=== PATIENT | male | born 1960 | race Caucasian/White ===

== ENCOUNTER → 2018-12-23 | Outpatient (CLI) | payer BC ==
--- NOTE | 2018-12-23 11:53 | RAD ---
SHOULDER 2+V LEFT 12/23/2018 12:00 AM INDICATION: Mass. Bump in the mid left clavicle. COMPARISON: None available. TECHNIQUE: 3 views of the left shoulder are provided. FINDINGS: There is no acute fracture or dislocation. Bone mineralization is within normal limits. Joint spaces are maintained. Regional soft tissues are within normal limits. There is no soft tissue gas or osseous erosion. Anterior cervical discectomy and fusion hardware is identified in the lower cervical spine. IMPRESSION: No acute fracture or dislocation. No significant soft tissue abnormality is visualized. If there is persistent clinical concern, further evaluation with targeted ultrasound may be of benefit. Electronically signed by: Nery Reynolds MD (12/23/2018 11:50 AM) [facility]
== END | disposition home or self-care (01) ==
LOC: RAD 11:13
PROVIDERS: ATTEND General Practice
DX: R22.32 Localized swelling, mass and lump, left upper limb (principal); Z98.1 Arthrodesis status
CPT/HCPCS: 73030

== ENCOUNTER 2019-08-19 09:44 | Emergency (ER) | payer BC ==
[~2019-08-19] VITALS: Ht 177.8 cm; Wt 87.1 kg
--- NOTE | 2019-08-19 10:08 | PHYS DOC ---
Past Medical History Past Surgical History: Other (Cervical Fusion) Smoking: Cigarettes Adult General Chief Complaint Chief Complaint: CHEST PAIN HPI HPI Patient is a 59 year old male with PMH of cervical vertebral fusion who presents with chest pain, left arm pain, and neck pain. He he states this pain has been going on since last Saturday and has become increasingly more severe until today. He reports sharp, left upper chest pain that radiates down his left arm and has caused his left hand to feel somewhat numb. He also has excruciating neck pain at this time in his left, paraspinal cervical area. He has taken ibuprofen and Tylenol for the pain which has not helped at this point. He admits to decreased strength and range of motion in his left upper extremity. He denies any shortness of breath, swelling in his legs, nausea, or vomiting. Review of Systems Review of Systems Constitutional: Denies fever or chills Eyes: Denies redness or eye pain HENT: Denies nasal congestion or sore throat Respiratory: Denies cough or shortness of breath Cardiovascular: Reports sharp, left-sided chest pain but no palpitations GI: Denies abdominal pain, nausea, or vomiting : Denies dysuria or hematuria Musculoskeletal: Reports left, upper extremity pain. Left sided neck pain. Integument: Mild swelling, erythema over left upper chest Neurologic: Denies headache, focal weakness or sensory changes Complete systems were reviewed and found to be within normal limits, except as documented in this note. Current Medications Current Medications Current Medications Medications (Trade) Dose Ordered Sig/Jesika Start Time Stop Time Status Last Admin Dose Admin Aspirin (Tre Aspirin) 325 mg 1X ONCE 08/19/19 10:15 08/19/19 10:16 DC 08/19/19 10:20 325 MG Dexamethasone (Decadron) 10 mg 1X ONCE 08/19/19 11:00 08/19/19 11:01 DC 08/19/19 11:06 10 MG Fentanyl Citrate (Fentanyl 2ml Vial) 50 mcg 1X ONCE 08/19/19 10:15 08/19/19 10:16 DC 08/19/19 10:21 50 MCG Hydromorphone HCl (Dilaudid) 0.5 mg 1X ONCE 08/19/19 11:30 08/19/19 11:31 DC 08/19/19 11:44 0.5 MG Info (CONTRAST GIVEN -- Rx MONITORING) 1 each PRN DAILY PRN 08/19/19 11:30 08/19/19 13:09 DC Iohexol (Omnipaque 300 Mg/ml) 75 ml 1X ONCE 08/19/19 11:30 08/19/19 11:31 DC 08/19/19 11:30 75 ML Ketorolac Tromethamine (Toradol 15mg Vial) 15 mg 1X ONCE 08/19/19 11:00 08/19/19 11:01 DC 08/19/19 11:06 15 MG Orphenadrine Citrate (Norflex) 60 mg 1X ONCE 08/19/19 10:15 08/19/19 10:16 DC 08/19/19 10:21 60 MG Oxycodone/ Acetaminophen (Percocet 5/325) 1 tab 1X ONCE 08/19/19 12:45 08/19/19 12:47 DC 08/19/19 12:59 1 TAB Sodium Chloride 1,000 ml @ 1,000 mls/hr 1X ONCE 08/19/19 10:15 08/19/19 11:14 DC 08/19/19 10:20 1,000 MLS/HR Allergies Allergies Allergies Coded Allergies Type Severity Reaction Last Updated Verified No Known Drug Allergies 08/19/19 No Physical Exam Physical Exam Constitutional: Well developed, well nourished, 59yo male in severe pain. HENT: Normocephalic, atraumatic, oropharynx moist Eyes: conjunctiva normal, no discharge Neck: Normal range of motion, TTP over left paraspinal muscles Cardiovascular: Heart rate normal, regular rhythm Lungs & Thorax: Bilateral breath sounds clear to auscultation, no wheezing Abdomen: Soft, no tenderness Skin: Mild localized swelling over left upper chest Extremities: TTP over entire left, upper extremity. Decreased ROM and strength. Sensation and pulses are normal. Neurologic: Alert and oriented X 3, normal motor function, normal sensory function, no focal deficits noted Psychologic: Affect normal, judgement normal, mood normal Current Patient Data Vital Signs Vital Signs Date Time Temp Pulse Resp B/P (MAP) Pulse Ox O2 Delivery O2 Flow Rate FiO2 08/19/19 12:59 16 99 Room Air 08/19/19 12:15 68 149/88 (108) 08/19/19 09:55 98.3 98.3 Lab Values Laboratory Tests Test 08/19/19 10:10 White Blood Count 5.8 x10^3/uL (4.0-11.0) Red Blood Count 4.94 x10^6/uL (4.30-5.70) Hemoglobin 15.8 g/dL (13.0-17.5) Hematocrit 46.1 % (39.0-53.0) Mean Corpuscular Volume 93 fL (79-100) Mean Corpuscular Hemoglobin 32 pg (25-35) Mean Corpuscular Hemoglobin Concent 34 g/dL (31-37) Red Cell Distribution Width 12.7 % (11.5-14.5) Platelet Count 160 x10^3/uL (140-400) Neutrophils (%) (Auto) 60 % (31-73) Lymphocytes (%) (Auto) 23 % (24-48) L Monocytes (%) (Auto) 11 % (0-9) H Eosinophils (%) (Auto) 5 % (0-3) H Basophils (%) (Auto) 1 % (0-3) Neutrophils # (Auto) 3.5 x10^3/uL (1.8-7.7) Lymphocytes # (Auto) 1.4 x10^3/uL (1.0-4.8) Monocytes # (Auto) 0.6 x10^3/uL (0.0-1.1) Eosinophils # (Auto) 0.3 x10^3/uL (0.0-0.7) Basophils # (Auto) 0.0 x10^3/uL (0.0-0.2) Prothrombin Time 12.9 SEC (11.7-14.0) Prothrombin Time INR 1.0 (0.8-1.1) Activated Partial Thromboplast Time 30 SEC (24-38) Sodium Level 138 mmol/L (136-145) Potassium Level 4.2 mmol/L (3.5-5.1) Chloride Level 101 mmol/L (98-107) Carbon Dioxide Level 28 mmol/L (21-32) Anion Gap 9 (6-14) Blood Urea Nitrogen 10 mg/dL (8-26) Creatinine 1.0 mg/dL (0.7-1.3) Estimated GFR (Cockcroft-Gault) 76.7 BUN/Creatinine Ratio 10 (6-20) Glucose Level 114 mg/dL (70-99) H Calcium Level 9.3 mg/dL (8.5-10.1) Magnesium Level 2.2 mg/dL (1.8-2.4) Total Bilirubin 0.3 mg/dL (0.2-1.0) Aspartate Amino Transferase (AST) 13 U/L (15-37) L Alanine Aminotransferase (ALT) 16 U/L (16-63) Alkaline Phosphatase 71 U/L (46-116) Creatine Kinase 102 U/L (39-308) Creatine Kinase MB (Mass) 2.8 ng/mL (0.0-3.6) Creatine Kinase MB Relative Index 2.7 % (0-4) Troponin I Quantitative < 0.017 ng/mL (0.000-0.055) Total Protein 7.8 g/dL (6.4-8.2) Albumin 4.0 g/dL (3.4-5.0) Albumin/Globulin Ratio 1.1 (1.0-1.7) Lipase 142 U/L (73-393) Laboratory Tests 08/19/19 10:10 Laboratory Tests 08/19/19 10:10 EKG EKG 08/19/2019 @11:25 shows NSR at 94bpm. No ST elevations. [] Radiology/Procedures Radiology/Procedures PROCEDURE: CT CHEST W/CONTRAST CT CHEST W/CONTRAST Indication: Left chest wall pain. Patient fell. Exposure: One or more of the following individualized dose reduction techniques were utilized for this examination: 1. Automated exposure control 2. Adjustment of the mA and/or kV according to patient size 3. Use of iterative reconstruction technique. Technique: Standard imaging obtained after intravenous contrast administration. Comparison: None FINDINGS: Ascending aorta measures 3.8 cm compatible with mild ectasia. Aorta mildly calcified. No evidence of aortic dissection or aneurysm. Main central pulmonary arteries are grossly patent. Coronary artery calcification. No pericardial or pleural effusion. Thyroid demonstrates no dominant mass. No evidence of pathologic lymph node enlargement. No significant esophageal distention. Lungs appear clear without dominant mass or infiltrate. No evidence of pneumothorax. Trachea and mainstem bronchi are patent. No evidence of acute fracture. Vertebral body height as is alignment. Degenerative spondylosis. Scans to the upper abdomen limited by technique but no obvious abnormality. IMPRESSION: No acute findings. Electronically signed by: George Nayak MD (08/19/2019 12:22 PROCEDURE: CT HEAD AND CERVICAL SPINE WO CT scan of the head without contrast 08/19/2019 Clinical History: Fall with head injury Technique: Unenhanced, contiguous, 5 mm axial sections were obtained through the head. One or more of the following individualized dose reduction techniques were utilized for this study: 1. Automated exposure control. 2. Adjustment of the mA and/or kV according to patient size. 3. Use of iterative reconstruction technique. Findings: The ventricles and sulci are within normal limits in size and configuration. No acute parenchymal abnormality is seen. No extra-axial fluid collection is noted. No skull fracture is seen. Mild to moderate mucosal thickening is involving left maxillary sinus and scattered throughout the ethmoid air cells bilaterally. Impression: No acute intracranial abnormality is seen. CT scan of the cervical spine without contrast 08/19/2019 Clinical history: Fall with neck injury. Technique: Unenhanced, contiguous, 0.625 mm axial sections were obtained through the cervical spine. Axial, coronal and sagittal reconstructed images were obtained. One or more of the following individualized dose reduction techniques were utilized for this study: 1. Automated exposure control. 2. Adjustment of the mA and/or kV according to patient size. 3. Use of iterative reconstruction technique. Findings: Sagittal and coronal reconstructed images demonstrate minimal lateral curvature of the cervical spine, convex to the left. There is straightening of the normal cervical lordosis. The patient is post anterior fusion using anterior plate, bone screws and bone graft material at C6-7. Atherosclerotic calcification of the carotid bifurcations is seen. No fracture or subluxation cervical vertebrae seen. Degenerative changes are seen involving the uncovertebral and facet joints throughout the cervical disc spaces. Impression: No fracture or subluxation of the cervical vertebra is identified. Electronically signed by: Reji Hallman MD (08/19/2019 12:13 PM) [facility] Course & Med Decision Making Course & Med Decision Making Patient is a 59-year-old male with past medical history of cervical vertebral fusion presents with left upper chest pain, left upper extremity pain, and neck pain. Reports this pain began last Saturday and has become increasingly severe. He also reports slipping and falling on his back 2 weeks ago. In the emergency department, EKG and chest x-ray were largely unremarkable. Labs were obtained and were likewise reassuring. CT of the head, neck, and chest with contrast was obtained and demonstrated no acute abnormalities. Patient was administered fentanyl and Norflex initially which only partially controlled his pain. Due to his severe discomfort, Dilaudid and Ketorolac were also administered. Patient sent home with pain medication and advised to follow up with pain management. Patient stable for discharge with outpatient follow-up with PCP. Discussed findings and plan with patient, who acknowledges understanding and agreement. Dragon Disclaimer Dragon Disclaimer This electronic medical record was generated, in whole or in part, using a voice recognition dictation system. Departure Departure Impression: Primary Impression: Cervical radicular pain Disposition: HOME, SELF-CARE Condition: IMPROVED Referrals: NIGEL LEYVA DO (PCP) VEGA TALBOT MD Patient Instructions: Cervical Radiculopathy, [place] Scripts Naproxen (NAPROXEN) 375 Mg Tablet 375 MG PO TID PRN for PAIN, #30 TAB Prov: GEORGE WHITE DO 08/19/19 Orphenadrine Citrate (ORPHENADRINE CITRATE) 100 Mg Tablet.er 100 MG PO BID PRN for MUSCLE PAIN, #14 Prov: GEORGE WHITE DO 08/19/19 Prednisone (PREDNISONE) 20 Mg Tablet 2 TAB PO DAILY, #8 TAB Take this prescription tomorrow, 08/20/19 Prov: GEORGE WHITE DO 08/19/19 Oxycodone/Apap 5-325 (PERCOCET 5-325 MG TABLET ) 1 Each Tablet 0.5-1 TAB PO PRN Q6HRS PRN for PAIN, #14 TAB 0 Refills Prov: GEORGE WHITE DO 08/19/19 The HEART Score for CP Pts Risk Factors: Risk Factors: DM, Current or recent (<one month) smoker, HTN, HLP, family history of CAD, obesity. Risk Scores: Score 0 - 3: 2.5% MACE over next 6 weeks - Discharge Home Score 4 - 6: 20.3% MACE over next 6 weeks - Admit for Clinical Observation Score 7 - 10: 72.7% MACE over next 6 weeks - Early Invasive Strategies GEORGE WHITE DO Aug 19, 2019 10:08
[2019-08-19] MEDS ORDERED: ORPHENADRINE CITRATE 60 MG/2 ML VIAL. IV ONE (10:15)
[2019-08-19] MEDS ORDERED: ASPIRIN 325 MG TABLET PO ONE (10:15)
[2019-08-19] MEDS ORDERED: IV NORMAL SALINE 1000ML BAG 1,000 ML IV ONE (10:15)
[2019-08-19] MEDS ORDERED: fentaNYL PF VIAL 100 MCG/2 ML VIAL IV ONE (10:15)
[2019-08-19 10:18] LABS: BASO % 1 % (0-3); EOS # 0.3 x10^3/uL (0.0-0.7); EOS % 5 % (0-3); HEMATOCRIT 46.1 % (39.0-53.0); HEMOGLOBIN 15.8 g/dL (13.0-17.5); LYMPH # 1.4 x10^3/uL (1.0-4.8); LYMPH % 23 % (24-48); MEAN CORPUSCULAR HEMOGLOBIN 32 pg (25-35); MEAN CORPUSCULAR HGB CONC 34 g/dL (31-37); MEAN CORPUSCULAR VOLUME 93 fL (79-100); MONO # 0.6 x10^3/uL (0.0-1.1); MONO % 11 % (0-9); NEUT # 3.5 x10^3/uL (1.8-7.7); NEUT % 60 % (31-73); PLATELET COUNT 160 x10^3/uL (140-400); RED BLOOD COUNT 4.94 x10^6/uL (4.30-5.70); RED CELL DISTRIBUTION WIDTH 12.7 % (11.5-14.5); WHITE BLOOD COUNT 5.8 x10^3/uL (4.0-11.0)
[2019-08-19 10:28] LABS: CALCIUM 9.3 mg/dL (8.5-10.1); GFR 76.7; POTASSIUM 4.2 mmol/L (3.5-5.1)
[2019-08-19 10:32] LABS: ALBUMIN/GLOBULIN RATIO 1.1 (1.0-1.7); MAGNESIUM 2.2 mg/dL (1.8-2.4); TOTAL BILIRUBIN 0.3 mg/dL (0.2-1.0); TOTAL PROTEIN 7.8 g/dL (6.4-8.2)
[2019-08-19 10:37] LABS: PROTHROMBIN TIME PATIENT 12.9 SEC (11.7-14.0)
[2019-08-19] MEDS ORDERED: DEXAMETHASONE 4 MG TABLET PO ONE (11:00)
[2019-08-19] MEDS ORDERED: KETOROLAC 15 MG/ML VIAL. IVP ONE (11:00)
[2019-08-19] MEDS ORDERED: CONTRAST GIVEN. MC PRN (11:30)
[2019-08-19] MEDS ORDERED: IOHEXOL 300 MG/ML 100ML VIAL. IV ONE (11:30)
[2019-08-19] MEDS ORDERED: HYDROmorphone 2 MG/ML VIAL IV ONE (11:30)
[2019-08-19 12:15] VITALS: BP 149/88
--- NOTE | 2019-08-19 12:15 | RAD ---
CT scan of the head without contrast 08/19/2019 Clinical History: Fall with head injury Technique: Unenhanced, contiguous, 5 mm axial sections were obtained through the head. One or more of the following individualized dose reduction techniques were utilized for this study: 1. Automated exposure control. 2. Adjustment of the mA and/or kV according to patient size. 3. Use of iterative reconstruction technique. Findings: The ventricles and sulci are within normal limits in size and configuration. No acute parenchymal abnormality is seen. No extra-axial fluid collection is noted. No skull fracture is seen. Mild to moderate mucosal thickening is involving left maxillary sinus and scattered throughout the ethmoid air cells bilaterally. Impression: No acute intracranial abnormality is seen. CT scan of the cervical spine without contrast 08/19/2019 Clinical history: Fall with neck injury. Technique: Unenhanced, contiguous, 0.625 mm axial sections were obtained through the cervical spine. Axial, coronal and sagittal reconstructed images were obtained. One or more of the following individualized dose reduction techniques were utilized for this study: 1. Automated exposure control. 2. Adjustment of the mA and/or kV according to patient size. 3. Use of iterative reconstruction technique. Findings: Sagittal and coronal reconstructed images demonstrate minimal lateral curvature of the cervical spine, convex to the left. There is straightening of the normal cervical lordosis. The patient is post anterior fusion using anterior plate, bone screws and bone graft material at C6-7. Atherosclerotic calcification of the carotid bifurcations is seen. No fracture or subluxation cervical vertebrae seen. Degenerative changes are seen involving the uncovertebral and facet joints throughout the cervical disc spaces. Impression: No fracture or subluxation of the cervical vertebra is identified. Electronically signed by: Reji Hallman MD (08/19/2019 12:13 PM) [facility]
--- NOTE | 2019-08-19 12:25 | RAD ---
CT CHEST W/CONTRAST Indication: Left chest wall pain. Patient fell. Exposure: One or more of the following individualized dose reduction techniques were utilized for this examination: 1. Automated exposure control 2. Adjustment of the mA and/or kV according to patient size 3. Use of iterative reconstruction technique. Technique: Standard imaging obtained after intravenous contrast administration. Comparison: None FINDINGS: Ascending aorta measures 3.8 cm compatible with mild ectasia. Aorta mildly calcified. No evidence of aortic dissection or aneurysm. Main central pulmonary arteries are grossly patent. Coronary artery calcification. No pericardial or pleural effusion. Thyroid demonstrates no dominant mass. No evidence of pathologic lymph node enlargement. No significant esophageal distention. Lungs appear clear without dominant mass or infiltrate. No evidence of pneumothorax. Trachea and mainstem bronchi are patent. No evidence of acute fracture. Vertebral body height as is alignment. Degenerative spondylosis. Scans to the upper abdomen limited by technique but no obvious abnormality. IMPRESSION: No acute findings. Electronically signed by: George Nayak MD (08/19/2019 12:22 PM) [facility]
[2019-08-19] MEDS ORDERED: oxyCODONE/APAP 5/325 1 TAB TABLET PO ONE (12:45)
[2019-08-19] MEDS ORDERED: PRED20TA PO (12:51)
[2019-08-19] MEDS ORDERED: ORPH100T PO (12:51)
[2019-08-19] MEDS ORDERED: OXYC1TAB15 PO (12:51)
[2019-08-19] MEDS ORDERED: NAPR-695 PO (12:51)
--- NOTE | 2019-08-20 06:07 | EKG ---
[facility] [address] [place] [id number] Test Date: 2019-08-19 Test Time: 09:53:04 Pat Name: MAGDALENA LOGAN Department: Room: Gender: M Annual Giving Officer: : 1960 Requested By: SAWYER WHITE Order Number: [id number] Reading MD: Measurements Intervals [place] Rate: 94 P: 54 ME: 156 QRS: -43 QRSD: 90 T: 55 QT: 326 QTc: 412 Interpretive Statements SINUS RHYTHM ABNORMAL LEFT AXIS DEVIATION LEFT ANTERIOR FASCICULAR BLOCK ABNORMAL ECG No previous ECG available for comparison
== END 2019-08-19 13:00 | disposition home or self-care (01) ==
LOC: ER 09:44
DX: M54.12 Radiculopathy, cervical region (principal); M54.2 Cervicalgia; R07.89 Other chest pain; M79.642 Pain in left hand; F17.210 Nicotine dependence, cigarettes, uncomplicated; Z79.82 Long term (current) use of aspirin; Z79.899 Other long term (current) drug therapy
CPT/HCPCS: 36415; 70450; 71260; 72125; 80053; 82553; 83690; 83735; 84484; 85025; 85610; 85730; 93005; 96374; 96375; 99285; J1170; J1885; J2360; J3010; J7030; J8540; Q9967